=== PATIENT | male | born 1995 | race Caucasian/White ===

== ENCOUNTER 2018-09-09 07:59 | Emergency (ER) | payer SELFPAY, OTHER | END 2018-09-09 09:10 | disposition home or self-care (01) | LOC: E/R 07:59 | DX: R55 Syncope and collapse (principal) | CPT/HCPCS: 82962; 93005; 99283-25 ==

== ENCOUNTER 2018-12-04 12:18 | Emergency (ER) | payer SELFPAY ==
[2018-12-04] MEDS: HYDROCODONE/APAP (5/325) TAB PO (15:16)
== END 2018-12-04 16:26 | disposition home or self-care (01) ==
LOC: FTE 12:18
DX: S69.92XA Unspecified injury of left wrist, hand and finger(s), initial encounter (principal); V18.0XXA Pedal cycle driver injured in noncollision transport accident in nontraffic accident, initial encounter
CPT/HCPCS: 29125; 73110-LT; 73130-LT; 99283-25

== ENCOUNTER 2019-05-20 16:08 | Emergency (ER) | payer OTHER, MEDICAID | END 2019-05-20 17:15 | disposition home or self-care (01) | LOC: FTE 16:08 | DX: R05 Cough (principal); R50.9 Fever, unspecified; R52 Pain, unspecified | CPT/HCPCS: 99283; Z7502 ==